=== PATIENT | female | born 1955 | race African-American/Black ===

== ENCOUNTER 2020-11-26 18:21 | Emergency (ER) | payer BC ==
[2020-11-26 18:33] VITALS: BP 119/86; PULSE 104; TEMP 98.1; BMI 31.4
== END 2020-11-26 19:39 | disposition home or self-care (01) ==
LOC: JER 18:21
DX: M54.12 Radiculopathy, cervical region (principal)
CPT/HCPCS: 99281-25

== ENCOUNTER 2021-09-01 13:56 | Emergency (ER) | payer BC ==
[2021-09-01 14:07] VITALS: BP 130/68; PULSE 90; TEMP 100; BMI 31.1
[2021-09-01] MEDS ORDERED: DEXAMETHASONE SOD PHOSPHATE 10 MG/1 ML VIAL IVPUSH ONE (14:35)
[2021-09-01] MEDS ORDERED: DEXAMETHASONE SOD PHOSPHATE 10 MG/1 ML VIAL ONE (14:43)
== END 2021-09-01 14:54 | disposition home or self-care (01) ==
LOC: FER 13:56
PROC: 3E033GC Introduction of Other Therapeutic Substance into Peripheral Vein, Percutaneous Approach (ICD-10-PCS; principal; 2021-09-01)
DX: J02.9 Acute pharyngitis, unspecified (principal)
CPT/HCPCS: 87070; 87651; 96374; 99284-25; J1100

== ENCOUNTER 2023-07-03 13:01 | Emergency (ER) | payer SELFPAY ==
[2023-07-03 13:09] VITALS: BP 141/63; PULSE 82; RESP 18; TEMP 97.9; BMI 31.1
[2023-07-03] MEDS ORDERED: ACETAMINOPHEN INJECTION 100 ML IVPB ONE (14:06)
[2023-07-03] MEDS: ACETAMINOPHEN 1000 MG/100 ML BAG IVPB ONE (14:25)
[2023-07-03 14:33] LABS: BASO % 0.7 % (0-2.0); HEMATOCRIT 39.2 % (32.4-45.2); HEMOGLOBIN 13.3 GM/dL (10.7-15.3); LYMPH % 34.9 % (8-40); MCH 27.7 pg (25.7-33.7); MCHC 33.9 g/dl (32.0-36.0); MEAN CELL VOLUME 81.5 fl (80-96); MEAN PLT VOLUME 7.6 fl (7.5-11.1); MONO % 7.3 % (3.8-10.2); NEUT % 55.1 % (42.8-82.8); PLATELET COUNT 313 10^3/uL (134-434); RBC 4.81 M/mm3 (3.60-5.2); RDW 13.8 % (11.6-15.6); WHITE BLOOD COUNT 5.9 K/mm3 (4.0-10.0)
[2023-07-03 14:36] LABS: PH,URINE 7.5 (5.0-8.0); URINE APPEARANCE CLEAR; URINE BILIRUBIN NEGATIVE (NEGATIVE); URINE COLOR YELLOW; URINE GLUCOSE (UA) NEGATIVE (NEGATIVE); URINE KETONE NEGATIVE (NEGATIVE); URINE LEUK ESTERASE NEGATIVE (NEGATIVE); URINE NITRITE NEGATIVE (NEGATIVE); URINE PROTEIN NEGATIVE (NEGATIVE); URINE UROBILINOGEN 0.2 mg/dL (0.2-1.0)
[2023-07-03 14:41] LABS: INR 1.12 (0.83-1.09)
[2023-07-03 14:44] LABS: ACTIVATED PTT 30.7 SECONDS (25.2-36.5)
[2023-07-03 14:57] LABS: POTASSIUM 3.6 mmol/L (3.5-5.1)
[2023-07-03 14:59] LABS: CALCIUM 9.8 mg/dL (8.5-10.1)
[2023-07-03 15:00] LABS: ALBUMIN 3.5 g/dl (3.4-5.0); BLOOD UREA NITROGEN 15.1 mg/dL (7-18)
[2023-07-03 15:02] LABS: CREATININE 0.8 mg/dL (0.55-1.3)
[2023-07-03 15:05] LABS: BILIRUBIN,TOTAL 0.3 mg/dL (0.2-1); TOT PROT 7.9 g/dl (6.4-8.2)
== END 2023-07-03 16:42 | disposition home or self-care (01) ==
LOC: JER 13:01
PROC: 3E030NZ Introduction of Analgesics, Hypnotics, Sedatives into Peripheral Vein, Open Approach (ICD-10-PCS; principal; 2023-07-03)
DX: R10.12 Left upper quadrant pain (principal); R10.32 Left lower quadrant pain; R14.0 Abdominal distension (gaseous); D25.9 Leiomyoma of uterus, unspecified
CPT/HCPCS: 36415; 74177-TC; 80053; 81003; 83690; 85025; 85610; 85730; 86850; 86900; 86901; 87086; 93005; 93010; 99285-25; J0131